=== PATIENT | male | born 1950 | race African-American/Black ===

== ENCOUNTER 2016-12-13 22:37 | Emergency (ER) | payer MEDICARE, MEDICAID ==
[2016-12-14] MEDS ORDERED: EPINEPHrine 1 MG/10 ML SYR IV ONE (00:20)
[2016-12-14] MEDS ORDERED: AMIODARONE 150MG/3ML VIAL IV ONE (00:22)
== END 2016-12-14 00:48 | disposition expired ==
LOC: ER 22:37
DX: I46.2 Cardiac arrest due to underlying cardiac condition (principal); I25.10 Atherosclerotic heart disease of native coronary artery without angina pectoris; I49.01 Ventricular fibrillation; E11.9 Type 2 diabetes mellitus without complications; Z79.899 Other long term (current) drug therapy; Z79.82 Long term (current) use of aspirin
CPT/HCPCS: 92950; 96374